=== PATIENT | female | born 1955 | race Caucasian/White ===

== ENCOUNTER 2024-03-01 04:09 | Emergency (ER) | payer SELFPAY ==
[2024-03-01 04:12] VITALS: BP 129/67
--- NOTE | 2024-03-01 04:34 | ED.GENMED ---
History of Present Illness
<DEEPTI Milligan - Last Filed: 03/01/24 06:12>
General
Chief Complaint: Fall
Time Seen by Provider: 03/01/24 04:30
Travel History
Have you had any contact with someone who has COVID-19?: No
Do you have any symptoms of coronavirus? Fever > 100 degrees, chills, cough, shortness of breath, sore throat, loss of taste or smell, muscle aches, or headache?: No
History of Present Illness
History of Present Illness:
This is a 68 yo female PMH HTN presenting for L LE pain. She states she was stepping out of her slowly moving truck at 5pm yesterday and caught her R foot on a rope, causing her to fall on her L side. She experienced moderate pain and swelling
throughout the evening, and woke up early this morning to 8/10 dull pain in her popliteal region. When walking from her car this morning she had to use a cane to ambulate due to severe L LE pain when weight bearing.
She denies head, neck, and back pain, denies LOC, denies head trauma. Denies numbness/tingling, loss of sensation.
She denies history of trauma and surgery to LEs.
Past History
<DEEPTI Milligan - Last Filed: 03/01/24 06:12>
Past History
ED Past Medical History: None
ED Past Surgical History: None
Social History
Tobacco: Non-smoker
Alcohol: None
Living: with family
Review of Systems
<DEEPTI Milligan - Last Filed: 03/01/24 06:12>
Review of Systems
Allergies reviewed?: Yes
Constitutional: Reports no symptoms
Respiratory: Reports no symptoms
Cardiac: Reports no symptoms
Musculoskeletal: Reports joint pain
Phy Exam
<DEEPTI Milligan - Last Filed: 03/01/24 06:12>
General Physical Exam
General Presentation: well appearing
General age: appears stated age
Cardiovascular Exam
Cardiovascular Exam: regular rate/rhythm
Pulmonary Exam
Pulmonary Exam: lungs clear
Neurological Exam
Neurological Exam: alert and oriented x3
Musculoskeletal Exam
Musculoskeletal Exam: full ROM (L knee ROM intact), joint swelling and neuro vasc intact
Skin Exam
Skin Exam: other (Ecchymosis noted inferior to L patella)
Course
<DEEPTI Milligan - Last Filed: 03/01/24 06:12>
Orders/Labs/Results
Orders:
Orders
03/01/24 04:50
CR Knee - Left 4 Or More View* Urgent
Comment:
Reason For Exam: trauma
Vital Signs
Initial and Last Documented VS:
Initial Vital Signs
Temp Pulse Resp BP Pulse Ox
98.2 F 80 16 129/67 97
03/01/24 04:12 03/01/24 04:12 03/01/24 04:12 03/01/24 04:12 03/01/24 04:12
Last Documented Vital Signs
Temp Pulse Resp BP Pulse Ox
98.2 F 80 16 129/67 97
03/01/24 04:12 03/01/24 04:12 03/01/24 04:12 03/01/24 04:12 03/01/24 04:12
<Ernst Lyon MD - Last Filed: 03/01/24 22:20>
Orders/Labs/Results
Orders:
Orders
03/01/24 04:50
CR Knee - Left 4 Or More View* Urgent
Comment:
Reason For Exam: trauma
Vital Signs
Initial and Last Documented VS:
Initial Vital Signs
Temp Pulse Resp BP Pulse Ox
98.2 F 80 16 129/67 97
03/01/24 04:12 03/01/24 04:12 03/01/24 04:12 03/01/24 04:12 03/01/24 04:12
Last Documented Vital Signs
Temp Pulse Resp BP Pulse Ox
98.2 F 80 16 129/67 97
03/01/24 04:12 03/01/24 04:12 03/01/24 04:12 03/01/24 04:12 03/01/24 04:12
<DEEPTI Milligan - Last Filed: 03/01/24 06:12>
MDM/Problems Addressed
Differential Diagnosis Includes:
Knee sprain
-Fall with twisting motion
-XRAY
-Knee brace, non weight bearing, rest
<DEEPTI Milligan - Last Filed: 03/01/24 06:12>
*Radiology
Radiology exam reviewed: preliminary read by ED provider
*Critical Care Note
Total Time (30-74mins, 75-104mins- exclusive of procedures): Not Applicable
ED Attending Note
<DEEPTI Milligan - Last Filed: 03/01/24 06:12>
-
Portions of this chart may have been created with voice recognition software.� Occasional wrong word or��sound alike� substitutions may have occurred due to the inherent limitations of voice recognition software.
<Ernst Lyon MD - Last Filed: 03/01/24 22:20>
ED Attending Note
Patient seen and examined by attending physician: Yes
ED Attending Note:
Patient presents to ED secondary to worsening left leg pain, after she jumped off the back of the truck and twisted her left knee in the process. Patient states that she was landing, her right leg got caught in the rope, causing her to lose balance
and twisting her left knee in the process. Denies any other injuries from the fall. Patient has been able to walk after injury. However, when she woke up from sleep this morning, her pain appeared to be worse. Denies loss of sensation or
weakness. Denies previous history of knee pain. Denies recent change in level activities. Denies recent illness.
Physical Exam
General: no apparent distress, not acutely ill. afebrile
Head: nc/at. eomi
Neck: supple. no meningeal signs.
Abdomen: normal bowel sounds. not tender.
Neuro: alert and oriented. no focal neurological deficits
Skin: no rash
Psychiatric: well kept. interactive and cooperative
Extremities: no edema. mild lateral left knee swelling noted with tenderness, without deformity/erythema/ecchymosis. ROM left knee limited due to pain. negative valgus/varus maneuver.
X-ray: no acute findings.
History and exam consistent with likely knee sprain, possible LCL injury. Patient will be placed on knee immobilizer and advised to not weight-bear, ice application, leg elevation, along with orthopedic surgeon follow-up as an outpatient.
Discharge Plan
Departure
Patient Disposition: Home (Routine Discharge)
Date of Disposition: 03/01/24
Time of Disposition: 05:33
Patient with high blood pressure during this ER visit?: Yes
Condition: Good
Discharge Problem:
Knee sprain
Instructions: Knee Immobilizer (DC), Knee Sprain ED
Prescriptions:
No Action
oseltamivir [Tamiflu] 75 MG capsule
75 mg PO BID Qty: 10 0RF
Referrals:
Tram Ricketts MD [Family Provider] -
Suman Read MD [Active] -
Activity Restrictions/Additional Instructions:
As discussed, please follow-up with your primary care physician and/or referred orthopedic surgeon for further evaluation and treatment. Please continue to apply ice to affected area and elevate your leg at rest. Tylenol/Motrin for pain relief.
Interventions
Interventions:
*Risk Screen - Suicide Last Done: 03/01/24 04:12
*General Assessment Last Done: 03/01/24 04:40
*Neglect/Abuse Screening Last Done: 03/01/24 04:12
ED- Fall Risk Assessment Last Done: 03/01/24 04:40
*ED COVID-19 Vaccine History Last Done: 03/01/24 04:40
*Nursing Disposition Last Done: 03/01/24 05:50
ED-Musculoskeletal Assessment Last Done: 03/01/24 04:40
ED- Neurological Assessment Last Done: 03/01/24 04:40
ED-Skin Assessment Last Done: 03/01/24 04:40
Discharge Date and Time
Discharge Date/Time: 03/01/24 05:50
Print Language: ROMANIAN
[2024-03-01 04:40] VITALS: BMI 29.2
== END 2024-03-01 05:50 | disposition home or self-care (01) ==
LOC: EMR 04:09
PROVIDERS: EMERGENCY PHYSICIAN Emergency Medicine; FAMILY PHYSICIAN Internal Medicine
DX: S83.92XA Sprain of unspecified site of left knee, initial encounter (principal); X50.1XXA Overexertion from prolonged static or awkward postures, initial encounter; I10 Essential (primary) hypertension
CPT/HCPCS: 99283; 29505; 73564